=== PATIENT | female | born 1965 | race Caucasian/White ===

== ENCOUNTER 2019-12-18 16:14 | Outpatient (REF) | payer BC, SELFPAY ==
[2019-12-22 23:14] LABS: Patient Race White; SARS-CoV-2 RNA Undetected (Undetected); SARS-CoV-2 Specimen Source Nasopharynx
== END 2019-12-18 16:34 ==
LOC: NCHCN 16:14
PROVIDERS: PCP Obstetrics & Gynecology; Visit Provider Family Medicine
DX: Z20.828 Contact with and (suspected) exposure to other viral communicable diseases (principal)
CPT/HCPCS: U0003

== ENCOUNTER 2023-02-06 21:07 | Outpatient (REF) | payer BC, SELFPAY ==
[2023-02-06 21:34] LABS: HCT 41.4 % (36.0-46.0); HGB 14.2 g/dL (11.2-15.7); MCH 31.3 pg (27.0-33.0); MCHC 34.3 % (32.0-36.0); MCV 91 fL (80-95); MPV 10.2 fL (8.0-11.0); Platelet Count 311 10^3/uL (130-400); RBC 4.54 10^6/uL (3.93-5.22); RDW 12.7 % (11.7-14.6); RDW-SD 42.2 fL; WBC 11.49 10^3/uL (4.4-10.8)
[2023-02-06 22:14] LABS: ALT 22 U/L (14-59); AST 23 U/L (15-37); Albumin 4.1 g/dL (3.4-5.0); Alkaline Phosphatase 118 U/L (46-116); BUN 6 mg/dL (7-18); Bilirubin, Total 0.5 mg/dL (0.2-1.0); CREATININE 0.7 mg/dL (0.55-1.02); Calcium 9.6 mg/dL (8.5-10.1); Calculated LDL 166 mg/dL (<100); Chloride 105 mmol/L (98-107); Cholesterol 244 mg/dL (<200); Estimated GFR 102.07 (mL/min/1.73m2); Glucose 88 mg/dL (74-106); HDL Cholesterol 57 mg/dL (40-60); Potassium 4.2 mmol/L (3.5-5.1); Sodium 140 mmol/L (136-145); TSH (W/Ref FT4) 1.47 uIU/mL (0.36-3.74); Total Protein 7.6 g/dL (6.4-8.2); Triglyceride 106 mg/dL (<150)
== END 2023-02-06 21:08 | disposition home or self-care (01) ==
LOC: NCHCN 21:07
PROVIDERS: PCP Obstetrics & Gynecology; Visit Provider Family Medicine
DX: Z51.81 Encounter for therapeutic drug level monitoring (principal); Z13.0 Encounter for screening for diseases of the blood and blood-forming organs and certain disorders involving the immune mechanism; Z13.29 Encounter for screening for other suspected endocrine disorder; Z13.220 Encounter for screening for lipoid disorders
CPT/HCPCS: 80053; 80061; 85027; 84443

== ENCOUNTER 2023-03-20 15:40 | Outpatient (REF) | payer BC, SELFPAY ==
--- NOTE | 2023-03-20 14:20 | PAPFT_PTH ---
PATIENT: Brianna Horton LOC: [facility] U#:[id number] AGE/SX: 58/F ROOM: RE03/20/[address]: MARY: 1965 BED: DIS: 03/20/2023 SPEC #: [id number] RECD: 03/21/23 12:47 STATUS: BRYON LE #: [id number] SARAH: 03/20/23 14:[address]: Maureen Almeida DEPT: [facility] Cytology RECD BY: Vero Perez ENTERED: 03/21/23 12:47 SP TYPE: PAPFT OTHR DR: Natalia Mota Tissues: 1 - CX/ENDOCX FOR PAP SMEARS Procedures: PAP THIN PREP/[facility] Screening Comments: [id number]
== END 2023-03-20 15:41 | disposition home or self-care (01) ==
LOC: NCHCN 15:40
PROVIDERS: PCP Obstetrics & Gynecology; Visit Provider Family Medicine
DX: Z12.4 Encounter for screening for malignant neoplasm of cervix (principal)
CPT/HCPCS: 88142

== ENCOUNTER 2024-03-24 15:04 | Outpatient (REF) | payer BC, SELFPAY ==
[2024-03-26 13:44] LABS: Bacterial Vaginosis (BV) Positive (Negative); Candida glabrata Negative (Negative); Candida species group Negative (Negative); Chlamydia Result Negative (Negative); GC Result Negative (Negative); Trichomonas vaginalis Negative (Negative)
== END 2024-03-24 15:05 | disposition home or self-care (01) ==
LOC: NCHCN 15:04
PROVIDERS: PCP Obstetrics & Gynecology; Visit Provider Family Medicine
DX: Z11.3 Encounter for screening for infections with a predominantly sexual mode of transmission
CPT/HCPCS: 81513; 87481; 87491; 87591; 87661

== ENCOUNTER 2025-03-31 10:04 | Outpatient (REF) | payer BC, SELFPAY ==
[2025-03-31 15:36] LABS: Cholesterol 229 mg/dL (<200); HDL Cholesterol 55 mg/dL (>or=50)
== END 2025-03-31 10:05 | disposition home or self-care (01) ==
LOC: NCHCN 10:04
PROVIDERS: PCP Obstetrics & Gynecology; Visit Provider Family Medicine
DX: Z13.220 Encounter for screening for lipoid disorders (principal)
CPT/HCPCS: 80061